=== PATIENT | female | born 1965 | race Caucasian/White ===

== ENCOUNTER 2019-12-12 11:51 | Emergency (ER) | payer MEDICAID ==
[~2019-12-12] VITALS: Ht 137.2 cm; Wt 48.0 kg
[2019-12-12] MEDS ORDERED: PLEASE ENTER HEIGHT AND WEIGHT MC SCH (12:30)
[2019-12-12] MEDS ORDERED: PLEASE ENTER ALLERGIES MC SCH (12:30)
[2019-12-12] MEDS ORDERED: SODIUM CHLORIDE FLUSH 10ML SYR IVF ONE (12:30)
[2019-12-12 12:39] LABS: BASOPHILS # (AUTO) 0.05 x10^3/uL (0-0.1); BASOPHILS % (AUTO) 0 % (0-1); EOSINOPHILS # (AUTO) 0.13 x10^3/uL (0-0.4); EOSINOPHILS % (AUTO) 1 % (1-7); LYMPHOCYTES # (AUTO) 2.58 x10^3/uL (1-3.4); LYMPHOCYTES % (AUTO) 20 % (22-44); MD NO; MEAN CORPUSCULAR HEMOGLOBIN 28.3 pg (27.0-34.8); MEAN CORPUSCULAR VOLUME 88.3 fL (80-100); MEAN PLATELET VOLUME 8.4 fL (7.4-10.4); MONOCYTES # (AUTO) 0.61 x10^3/uL (0.2-0.8); MONOCYTES % (AUTO) 5 % (2-9); NEUTROPHILS # (AUTO) 9.28 x10^3/uL (1.8-6.8); NEUTROPHILS % (AUTO) 73 % (42-75); PLATELET COUNT 269 x10^3/uL (130-400); RED BLOOD COUNT 5.87 x10^6/uL (3.82-5.3); RED CELL DISTRIBUTION WIDTH 15.5 % (9.6-15.2)
--- NOTE | 2019-12-12 12:40 | NUR ---
SEE TRIAGE NOTE. PT PLACED ON ALL ROOM MONITORING DEVICES. PT C/O BILATERAL BACK RIB AREA PAIN, SOME CP WITH COUGH, LLQ PAIN AND CHRONIC BACK PAIN. BSC PLACED IN ROOM, PT STATES UNABLE TO GO RIGHT NOW. PT ASKED TO PUT INFORMATION SEC[employer]ITY [employer] LIGHT WHEN ABLE TO OBTAIN. LABS DRAWN. EKG DONE ON ARRIVAL. RA SAT 93% BUT OXYGEN PLACED AT 2LITERS VIA NC WHICH IS PT'S HOME SETTING. DROPLET PRECAUTIONS IN PLACE, COVID R/O. CALL LIGHT WITHIN REACH.
[2019-12-12 12:47] LABS: ALANINE AMINOTRANSFERASE 14 U/L (12-78); ALBUMIN 3.1 g/dL (3.4-5.0); ANION GAP 4 mmol/L (5-15); CALCIUM 8.8 mg/dL (8.5-10.1); CHLORIDE 108 mmol/L (98-107); CREATININE 0.66 mg/dL (0.55-1.02)
[2019-12-12 12:52] LABS: ALKALINE PHOSPHATASE 140 U/L (45-117); BILIRUBIN,TOTAL 0.4 mg/dL (0.2-1.0); TROPONIN I < 0.015 ng/mL (0.000-0.045)
[2019-12-12] MEDS ORDERED: DOXYCYCLINE 100MG TABLET PO ONE (13:00)
[2019-12-12] MEDS ORDERED: CEFDINIR 300 MG CAPSULE PO ONE (13:00)
[2019-12-12] MEDS ORDERED: OXYcodone IR 5MG TABLET PO ONE (13:00)
[2019-12-12] MEDS ORDERED: ALBUTEROL SULFATE 2.5 MG/3 ML NPPB ONE (13:00)
[2019-12-12] MEDS ORDERED: DOXYCYCLINE 100MG TABLET ONE (13:10)
[2019-12-12] MEDS ORDERED: CEFDINIR 300 MG CAPSULE ONE (13:10)
[2019-12-12] MEDS ORDERED: ALBUTEROL SULFATE 2.5 MG/3 ML ONE (13:10)
[2019-12-12] MEDS ORDERED: OXYcodone IR 5MG TABLET ONE (13:11)
--- NOTE | 2019-12-12 13:30 | NUR ---
SOUP BROTH AND SALTINES PROVIDED. PT UP TO BSC, UNABLE TO GIVE URINE STILL. NEBULIZER GIVEN, FPC THROUGH PT STATES "IT HURTS MY LUNGS, I DON'T WANT IT". NEBULIZER STOPPED PER PT REQUEST. SIGN FOR NEB/AEROSOLIZING TX PLACED ON DOOR. PT ABLE TO TAKE ALL MEDS PER EMAR WITHOUT PROBLEM. NO N/V DURING ED STAY.
[2019-12-12 14:21] VITALS: BP 100/60
== END 2019-12-12 14:24 | disposition home or self-care (01) ==
LOC: ED 13:30
DX: J12.9 Viral pneumonia, unspecified (principal); Z20.828 Contact with and (suspected) exposure to other viral communicable diseases; R06.00 Dyspnea, unspecified; R50.9 Fever, unspecified; R94.31 Abnormal electrocardiogram [ECG] [EKG]; R05 Cough; F17.200 Nicotine dependence, unspecified, uncomplicated
CPT/HCPCS: 36415; 71045; 80053; 83605; 83880; 84145; 84484; 85025; 87040; 87635; 93005; 94640; 99285; J7512; J7613